=== PATIENT | female | born 1990 | race Caucasian/White ===

== ENCOUNTER 2017-01-03 01:45 | Emergency (ER) | payer BC, OTHER ==
[~2017-01-03] VITALS: Ht 160 cm; Wt 65.8 kg
[~2017-01-03 01:45] MED LIST: CIPR10DR EACHEYE
[2017-01-03 02:31] LABS: BASO % 1 % (0-3); EOS % 1 % (0-3); HEMATOCRIT 34.1 % (36.0-47.0); HEMOGLOBIN 11.6 g/dL (12.0-15.5); LYMPH # 2.4 x10^3/uL (1.0-4.8); LYMPH % 29 % (24-48); MEAN CORPUSCULAR HEMOGLOBIN 34 pg (25-35); MEAN CORPUSCULAR HGB CONC 34 g/dL (31-37); MEAN CORPUSCULAR VOLUME 99 fL (79-100); MONO % 13 % (0-9); NEUT % 57 % (31-73); PLATELET COUNT 235 x10^3/uL (140-400); RED BLOOD COUNT 3.44 x10^6/uL (3.50-5.40); RED CELL DISTRIBUTION WIDTH 13.2 % (11.5-14.5); WHITE BLOOD COUNT 8.2 x10^3/uL (4.0-11.0)
--- NOTE | 2017-01-03 03:29 | RAD ---
EXAM: OB < 14 WKS HISTORY: VAG BLEEDING PASSING CLOTS COMPARISON: None available TECHNIQUE: Transverse and longitudinal sonography of the uterus is performed utilizing transabdominal and transvaginal transducers. FINDINGS: Transabdominal imaging demonstrates an anteflexed uterus measuring 9.5 x 5.5 x 5.8 cm. Within the uterus is a gestational sac measuring up to 3.8 cm. A yolk sac is visualized, as well as a embryo with crown-rump length of 1.1 cm corresponding within ultrasound gestational age of 7 weeks 1 day. heart rate of 147 bpm documented. Neither ovary is visualized. Transvaginal imaging demonstrates a trace amount of simple appearing free fluid in the cul-de-sac. The left ovary is visualized measuring 3.1 x 2.8 x 2.4 cm. Within the left ovary is a rounded 2.6 cm structure, suggestive of the corpus luteal cyst. Blood flow is documented within the left ovary. No adnexal mass is seen. Cystic appearing structures are seen within the cervix, may represent nabothian cysts. Embryo redemonstrated with crown-rump length of 1.2 cm corresponding within ultrasound gestational age of 7 weeks 3 days. heart rate of 147 bpm documented. Yolk sac visualized. The right ovary is visualized measuring 2.9 x 1.7 x 1.5 cm, with internal blood flow documented. No adnexal masses seen. IMPRESSION: 1. Single live intrauterine with overall ultrasound gestational age of 7 weeks 2 days corresponding with an estimated date of delivery of 08/20/2017. 2. A reported previous subchorionic hematoma is not visualized on today's exam. Electronically signed by: Kelly Garcia MD (01/03/2017 3:26 AM) [facility]
[2017-01-03 05:00] VITALS: BP 103/56
--- NOTE | 2017-01-03 21:11 | PHYS DOC ---
Past Medical History Past Medical History: Anxiety Past Surgical History: Tonsillectomy, Other Additional Past Surgical Histo: Dental, ACL Alcohol Use: Rarely Drug Use: None Adult General Chief Complaint Chief Complaint: VAGINAL BLEEDING HPI HPI Patient is a 26 year old G2, P1 female estimated 8 weeks gestation with history of subchorionic hemorrhage 3 weeks ago who presents with increased vaginal bleeding and cramping. Patient was sitting in bed this evening and felt lower pelvic cramping when she went to the bathroom she said she passed 2 large clots without noticeable POC. The patient denies dizziness lightheadedness, chest pain palpitations and shortness of breath. She denies any other acute symptoms or complaints. Patient is compliant with vitamins. She is nonsmoker nonconsumer of alcohol. She is accompanied at bedside by her significant other. Review of Systems Review of Systems ROS as per HPI. Allergies Allergies Allergies Coded Allergies Type Severity Reaction Last Updated Verified No Known Drug Allergies 08/14/14 No Physical Exam Physical Exam Constitutional: Well developed, well nourished, no acute distress, non-toxic appearance. [] HENT: Normocephalic, atraumatic, bilateral external ears normal, oropharynx moist, no oral exudates, nose normal. [] Eyes: PERRLA, EOMI, conjunctiva normal, no discharge. [] Neck: Normal range of motion, no tenderness, supple, no stridor. [] Cardiovascular:Heart rate regular rhythm, no murmur [] Lungs & Thorax: Bilateral breath sounds clear to auscultation [] Abdomen: Bowel sounds normal, soft, no tenderness, no masses, no pulsatile masses. [] : Dark red blood around the vaginal vault, cervix closed with bloody mucous plug vs possible gestational. Minimal flow. Back: No tenderness, no CVA tenderness. [] Extremities: No tenderness, no cyanosis, no clubbing, ROM intact, no edema. [] Neurologic: Alert and oriented X 3, normal motor function, normal sensory function, no focal deficits noted. [] Psychologic: Affect normal, judgement normal, mood normal. [] Current Patient Data Vital Signs Vital Signs Date Time Temp Pulse Resp B/P (MAP) Pulse Ox O2 Delivery O2 Flow Rate FiO2 01/03/17 05:00 70 103/56 (72) 98 Room Air 01/03/17 02:00 98.9 18 98.9 Lab Values Laboratory Tests Test 01/03/17 01:08 01/03/17 02:20 POC Urine HCG, Qualitative Hcg positive (Negative) White Blood Count 8.2 x10^3/uL (4.0-11.0) Red Blood Count 3.44 x10^6/uL (3.50-5.40) L Hemoglobin 11.6 g/dL (12.0-15.5) L Hematocrit 34.1 % (36.0-47.0) L Mean Corpuscular Volume 99 fL (79-100) Mean Corpuscular Hemoglobin 34 pg (25-35) Mean Corpuscular Hemoglobin Concent 34 g/dL (31-37) Red Cell Distribution Width 13.2 % (11.5-14.5) Platelet Count 235 x10^3/uL (140-400) Neutrophils (%) (Auto) 57 % (31-73) Lymphocytes (%) (Auto) 29 % (24-48) Monocytes (%) (Auto) 13 % (0-9) H Eosinophils (%) (Auto) 1 % (0-3) Basophils (%) (Auto) 1 % (0-3) Neutrophils # (Auto) 4.7 x10^3uL (1.8-7.7) Lymphocytes # (Auto) 2.4 x10^3/uL (1.0-4.8) Monocytes # (Auto) 1.1 x10^3/uL (0.0-1.1) Eosinophils # (Auto) 0.1 x10^3/uL (0.0-0.7) Basophils # (Auto) 0.0 x10^3/uL (0.0-0.2) Maternal Serum HCG Beta Subunit 32969 mIU/mL (0-5) H Laboratory Tests 01/03/17 02:20 EKG EKG [] Radiology/Procedures Radiology/Procedures [OB ultrasound less than 14 weeks. Viable IUP with resolution of previously diagnosed subchorionic hemorrhage per radiology report. ] Course & Med Decision Making Course & Med Decision Making Pertinent Labs and Imaging studies reviewed. (See chart for details) [Patient's O-. Previously received program shot in the past 2 weeks. H&H vital signs stable IUP on ultrasound. Patient's symptoms began 1 hour prior to arrival , patient is at risk for miscarriage is showing viable IUP. Recommend pelvic rest, watchful waiting and STAKING TECHNICIAN follow-up. Return precautions reviewed.] Dragon Disclaimer Dragon Disclaimer This electronic medical record was generated, in whole or in part, using a voice recognition dictation system. Departure Departure Impression: Primary Impression: Threatened miscarriage in early Disposition: HOME, SELF-CARE Condition: GOOD Patient Instructions: Threatened Miscarriage, [id number] Additional Instructions: You were evaluated in the emergency department for vaginal bleeding in the setting of early . An ultrasound was performed which shows resolution of previous subchorionic hemorrhage. A living intrauterine was also identified. Because of heavy vaginal bleeding urinary increased risk of miscarriage. Please rest your pelvis until you follow up with your STAKING TECHNICIAN in one week. If you develop new or worsening symptoms, return to the ED. WHITNEY MALONE DO Jan 03, 2017 21:11
== END 2017-01-03 05:25 | disposition home or self-care (01) ==
LOC: ER 01:45
DX: O20.0 Threatened abortion (principal); Z3A.01 Less than 8 weeks gestation of pregnancy
CPT/HCPCS: 36415; 76801; 81025; 84702; 85025; 86900; 86901; 99285-25

== ENCOUNTER → 2017-09-26 | Outpatient (CLI) | payer OTHER ==
[2017-09-26] MEDS: GADOBUTROL 10 MMOL/10 ML VIAL IV (16:19)
== END | disposition home or self-care (01) ==
LOC: KCIC MRI 15:13
DX: N28.89 Other specified disorders of kidney and ureter (principal)
CPT/HCPCS: 74183; A9585

== ENCOUNTER 2017-09-29 20:46 | Emergency (ER) | payer OTHER ==
[2017-09-29 21:15] LABS: ADD MAN DIFF? NO
[2017-09-29 21:17] LABS: URINE HCG POC HCG NEGATIVE (Negative)
[2017-09-29 21:17] LABS: BILIRUBIN,URINE NEGATIVE (NEG); CLARITY,URINE CLEAR; COLOR,URINE YELLOW; GLUCOSE,URINE NEGATIVE (NEG); NITRITE,URINE NEGATIVE (NEG); PROTEIN,URINE NEGATIVE (NEG-TRACE)
[2017-09-29 21:19] LABS: BASO % 1 % (0-3); EOS % 0 % (0-3); HEMATOCRIT 42.7 % (36.0-47.0); HEMOGLOBIN 14.8 g/dL (12.0-15.5); LYMPH % 36 % (24-48); MEAN CORPUSCULAR HEMOGLOBIN 34 pg (25-35); MEAN CORPUSCULAR HGB CONC 35 g/dL (31-37); MEAN CORPUSCULAR VOLUME 98 fL (79-100); MONO # 0.9 x10^3/uL (0.0-1.1); MONO % 11 % (0-9); NEUT # 4.2 x10^3uL (1.8-7.7); NEUT % 52 % (31-73); PLATELET COUNT 309 x10^3/uL (140-400); RED BLOOD COUNT 4.37 x10^6/uL (3.50-5.40); RED CELL DISTRIBUTION WIDTH 13.5 % (11.5-14.5); WHITE BLOOD COUNT 8.1 x10^3/uL (4.0-11.0)
[2017-09-29 21:22] LABS: BACTERIA,URINE FEW /HPF (0-FEW); RBC,URINE 0 /HPF (0-2); SQUAMOUS EPITHELIAL CELL,UR MOD /LPF
[2017-09-29 21:29] LABS: ANION GAP 10 (6-14); BLOOD UREA NITROGEN 15 mg/dL (7-20); CALCIUM 8.9 mg/dL (8.5-10.1); CARBON DIOXIDE 28 mmol/L (21-32); CHLORIDE 104 mmol/L (98-107); GLUCOSE 84 mg/dL (70-99); POTASSIUM 3.5 mmol/L (3.5-5.1); SODIUM 142 mmol/L (136-145)
[2017-09-29] MEDS: diphenhydrAMINE 50 MG/ML VIAL IVP (22:32)
[2017-09-29] MEDS: MORPHINE SULFATE 4 MG/ML DISP.SYRIN. IV (22:32)
[2017-09-29] MEDS: PROCHLORPERAZINE 10 MG/2 ML VIAL. IV (22:32)
== END 2017-09-29 22:47 | disposition home or self-care (01) ==
LOC: ER 20:46
DX: N39.0 Urinary tract infection, site not specified (principal)
CPT/HCPCS: 36415; 80048; 81001; 81025; 85025; 87086; 96374; 96375; 99284-25; J0690; J0780; J1200; J2270

== ENCOUNTER 2017-11-19 21:47 | Emergency (ER) | payer OTHER ==
[2017-11-19 23:11] LABS: URINE HCG POC HCG NEGATIVE (Negative)
[2017-11-19 23:12] LABS: BILIRUBIN,URINE NEGATIVE (NEG); CLARITY,URINE CLEAR; COLOR,URINE YELLOW; GLUCOSE,URINE NEGATIVE (NEG); NITRITE,URINE NEGATIVE (NEG); PROTEIN,URINE NEGATIVE (NEG-TRACE)
[2017-11-19 23:19] LABS: AMPHETAMINE/METHAMPHETAMINE NEG (NEG); BACTERIA,URINE FEW /HPF (0-FEW); BARBITURATES NEG (NEG); BENZODIAZEPINES NEG (NEG); CANNABINOIDS NEG (NEG); COCAINE NEG (NEG); ETHANOL, URINE NEG (NEG); METHADONE NEG (NEG); OPIATES NEG (NEG); PHENCYCLIDINE NEG (NEG); SQUAMOUS EPITHELIAL CELL,UR FEW /LPF
[2017-11-20 00:38] LABS: ADD MAN DIFF? NO
[2017-11-20 00:42] LABS: BASO % 0 % (0-3); EOS # 0.1 x10^3/uL (0.0-0.7); EOS % 1 % (0-3); HEMATOCRIT 39.4 % (36.0-47.0); HEMOGLOBIN 13.6 g/dL (12.0-15.5); LYMPH # 2.3 x10^3/uL (1.0-4.8); LYMPH % 25 % (24-48); MEAN CORPUSCULAR HEMOGLOBIN 34 pg (25-35); MEAN CORPUSCULAR HGB CONC 35 g/dL (31-37); MEAN CORPUSCULAR VOLUME 97 fL (79-100); MONO # 1.2 x10^3/uL (0.0-1.1); MONO % 13 % (0-9); NEUT # 5.6 x10^3uL (1.8-7.7); NEUT % 61 % (31-73); PLATELET COUNT 412 x10^3/uL (140-400); RED BLOOD COUNT 4.05 x10^6/uL (3.50-5.40); RED CELL DISTRIBUTION WIDTH 13.5 % (11.5-14.5); WHITE BLOOD COUNT 9.2 x10^3/uL (4.0-11.0)
[2017-11-20 00:52] LABS: ANION GAP 7 (6-14); BLOOD UREA NITROGEN 12 mg/dL (7-20); BUN/CREATININE RATIO 15 (6-20); CARBON DIOXIDE 25 mmol/L (21-32); CHLORIDE 102 mmol/L (98-107); CREATININE 0.8 mg/dL (0.6-1.0); GFR 86.7; GLUCOSE 91 mg/dL (70-99); SODIUM 134 mmol/L (136-145)
[2017-11-20 00:56] LABS: ETHANOL < 10 mg/dL (0-10)
[2017-11-20 00:58] LABS: ALBUMIN 3.5 g/dL (3.4-5.0); ALBUMIN/GLOBULIN RATIO 0.8 (1.0-1.7); ALK PHOS 231 U/L (46-116); ALT (SGPT) 127 U/L (14-59); AST (SGOT) 65 U/L (15-37); LIPASE 245 U/L (73-393); TOTAL BILIRUBIN 0.2 mg/dL (0.2-1.0)
[2017-11-20 01:34] LABS: ACETAMIN < 2 mcg/ml (10-30)
[2017-11-20] MEDS: MORPHINE SULFATE 4 MG/ML DISP.SYRIN. IV (01:45)
[2017-11-20 08:06] LABS: NEGATIVE OBC STREP NEG; POSITIVE OBC STREP POS
== END 2017-11-20 03:45 | disposition home or self-care (01) ==
LOC: ER 21:47
DX: G89.18 Other acute postprocedural pain (principal); R10.12 Left upper quadrant pain; J02.9 Acute pharyngitis, unspecified; R05 Cough
CPT/HCPCS: 36415; 71045; 74176; 76705; 80053; 80307; 81001; 81025; 83690; 85025; 87040; 87070; 87086; 87880; 96374; 99285-25; G0480; G6039; J2270

== ENCOUNTER → 2020-02-18 | Outpatient (CLI) | payer OTHER ==
[2017-11-19 22:43] VITALS: BP 141/84
[~2020-02-18] MED LIST changes: +HYDR-3164 PO; +NITR100C62 PO; +ONDA4TAB7 PO; +PROC10TA57 PO
--- NOTE | 2020-02-18 18:11 | KCIC ---
STUDY: MRI of the lumbar spine without contrast INDICATION: Low back pain. Reported left-sided flank pain since a partial nephrectomy in 2018. COMPARISON: Correlation is made to a CT abdomen/pelvis from 11/19/2017 TECHNIQUE: Multiplanar MR imaging of the lumbar spine performed without the use of intravenous contrast. FINDINGS: Normal signal and configuration of the conus medullaris that terminates at the mid L1 level. Unremarkable cauda equina nerve roots. Normal lumbar lordosis. Maintained vertebral body and disc space height. Normal marrow signal for patient age to include generalized low T1 signal that is slightly more hyperintense than disc space. Unremarkable prevertebral and dorsal paraspinous soft tissues. Sequela of partial nephrectomy on the left. Small T2 hyperintense focus within the right hepatic lobe is statistically most likely benign and no dedicated follow-up is needed unless otherwise clinically indicated. The appendix is visualized and is normal. The visualized sacroiliac joints are unremarkable. Intrauterine contraceptive device. T11-T12: Patent central canal and neural foramina. T12-L1: Patent central canal and neural foramina. L1-L2: Patent central canal and neural foramina. L2-L3: Patent central canal and neural foramina. L3-L4: Patent central canal and neural foramina. L4-L5: No significant disc bulge. Unremarkable facet joints. The central canal and neural foramina are patent. L5-S1: Unremarkable facet joints. No disc bulge. Patent central canal and neural foramina. IMPRESSION: Essentially normal lumbar spine MRI. Widely patent central canal and neural foramina. Electronically signed by: THOMAS JACKSON MD (02/18/2020 6:08 PM) [id number]
== END ==
LOC: KCIC MRI 15:05
PROVIDERS: ATTEND Internal Medicine
DX: M51.16 Intervertebral disc disorders with radiculopathy, lumbar region (principal); Z97.5 Presence of (intrauterine) contraceptive device
CPT/HCPCS: 72148